=== PATIENT | female | born 1995 | race Caucasian/White ===

== ENCOUNTER 2024-04-14 13:56 | Emergency (ER) | payer SELFPAY ==
[2024-04-14 13:57] VITALS: BP 139/76; PULSE 67; RESP 16; TEMP 36.6; O2SAT 100; BMI 25.5
--- NOTE | 2024-04-14 15:24 | ED.RN ---
PTCALLED TO TAKE TO A AREA FOR THE DR. PT CHOSE TO LEAVE - LWBS
== END 2024-04-14 15:24 | disposition left against medical advice (07) ==
LOC: ED 15:29
DX: K59.00 Constipation, unspecified (principal)

== ENCOUNTER → 2024-05-16 | Outpatient (CLI) | payer MEDICAID, SELFPAY ==
[2024-05-20 06:08] LABS: Chlamydia By Nucleic Acid AMP Negative (Negative); Gonococcus By Nucleic Acid AMP Negative (Negative)
[2024-05-22 14:05] LABS: HPV Reflexed? NOT INDICATED
== END | disposition home or self-care (01) ==
PROVIDERS: Referring Provider Registered Nurse; Visit Provider Registered Nurse
DX: O99.320 Drug use complicating pregnancy, unspecified trimester (principal); F11.20 Opioid dependence, uncomplicated; O09.299 Supervision of pregnancy with other poor reproductive or obstetric history, unspecified trimester; Z3A.00 Weeks of gestation of pregnancy not specified
CPT/HCPCS: 87491; 87591; 88175; G0145

== ENCOUNTER 2024-05-20 14:11 | Day surgery (SDC) | payer MEDICAID, SELFPAY ==
[2024-05-20] VITALS (10 sets, daily range): BP systolic 106–114; BP diastolic 55–71; PULSE 54–62; RESP 16; TEMP 36.2–36.6; O2SAT 100; BMI 23.6
--- NOTE | 2024-05-20 07:30 | PCM.HP.BLA ---
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 Is patient in pain?: No Allergies No Known Allergies Allergy (Verified 05/16/24 14:45) Medications ?Medication ?Instructions ?Recorded ?Confirmed ?Type buprenorphine 12 mg-naloxone 3 mg 1 film buccal Q24H 04/24/24 05/16/24 History sublingual film vit no.164-ferrous tab PO 04/24/24 05/16/24 History gluconate 6 mg-folate 833.5 mcg DFE tablet ( PNV) Last Menstrual Period: 03/05/24 : No PFSH PFSH Family History Mother Heart disease HypertensionGrandmother Breast cancer, Onset Age: 60Grandmother Cancer Colon cancer, Lung cancer Social History adopted: No household members: significant other and other details: Erickson Brunson Lillian, [place] (shared custody, different Dads) housing: house number of children: 4 current occupational status: unemployed pets and animals: Yes pets and animals: cat(s) history of recent travel: No sexually active: Yes Smoking Status: Former smoker quit date: 01/04/24 Electronic Cigarette Use: with nicotine quit status: considering quitting alcohol intake: never substance use type: opiates and other details: stopped 02/2023 well-balanced diet: daily or most days caffeine: No during the past year weight has: increased > 10 lbs what type of physical activity do you participate in: walking frequency: 3-4 times per week ken/baptist: Evangelical seatbelt use: always do you feel safe at home: Yes additional social history: Giselle Worrell History 7 Elective abortions Hx Para 4 Spontaneous abortions 3 Hx # Term Pregnancies Ectopic pregnancies Hx # Pregnancies Multiple births # of living children 4 Past Pregnancies Del. Date Name GA/Weeks Outcome Route Bth Weight Infant Gen Labor Lgth Anesthesia Del Locatn Provider FOB 05/16/24 9 spontaneous HPI 10WK NOB *new patient* Details: TONY MCKEON is a 28 year old who presents for New OB visit. she was supposed to 10 weeks but pole is measuring 9 weeks with no FHT seen, no color doppler flow. nonviable IUP and confirmed missed ab. OB Visit NIKOLAI Calculator Estimated Delivery Date Method Current WG Estimated Due Date: 12/10/24 Expected Delivery Route/Plan patient counseled regarding risks/benefits of trial of labor versus repeat . ACOG/uptodate education given to patient. [] % likelihood of success per calculator TOLAC consent form signed: [] Specific Issue/Plans Covid status: [] Flu vaccine: [] Tdap vaccine: [] Rhogam: [] LARC form signed: [] Problem list reviewed and updated with the most current plan of care details and appropriate orders placed. Relevant counseling for the gestational age provided. Continue routine care and follow up unless otherwise noted in visit notes/problem list details Initial Weight: 154 lb Date <del>?</del> EGA Weight BP Urine Prot <del>?</del> Glucose FHR FuHt Pres Dilation <del>?</del> Effaced St Visit Note 05/16/24<del>?</del> 10w 2d 154 lb 4 oz(+4 oz) 120/78 <del>?</del> <del>?</del> LC- no FHR, measuring 9 weeks. confirmed with JV. Menstrual History Last Menstrual Period: 03/05/24 Reported LMP: definite On hormonal BC at conception: No Antepartum Record Genetic Screening: Congenital Heart Defect: Other, Neural Tube Defect: Other, Hemoglobinopathy Or Carrier: Other, Cystic Fibrosis: Other, Chromosome Abnormality: Other, Kyree-Sachs: Other, Hemophilia: Other, Intellectual Disability/Autism: Other, Recurrent Loss/Stillbirth: Other, Other Structural Defect: Other, Other Genetic Disease: Other and Maternal Metabolic Disorder: Other Infection History: Live with someone with TB or Exposed to TB: No, Patient or Partner has history of Genital Herpes: No, Rash or Viral illness since last mentrual period: No, Prior GBS-Infected child: No, History of STD: No, HIV Infection: No, History of Hepatitis: No, Recent travel outside of [place]: No, Concern for hepatitis exposure: No, Varicella immune: No and Covid Vaccinated: Yes (had elderer x2) Medical History Medical History: Negative: Diabetes, Hypertension, Heart disease, Auto-immune disorder, Kidney disease/UTI, Neurologic/epilepsy, Psychiatric, Depression/ depression, Hepatitis/liver disease, Varicosities/phlebitis, Thyroid dysfunction, Trauma/domestic violence, History of blood transfusions, D (Rh) Sensitized, Pulmonary (e.g.,TB,Asthma), Seasonal allergies, Drug/latex allergies/reactions, Breast, Office Machine Service Supervisor surgery, Operations/hospitalizations, Anesthetic complications, History of abnormal pap, Uterine anomaly/kae, Infertility, Anti-retroviral treatment, Relevant family history and Other ACOG First Trimester First Trimester: Discussed ROS Const Denies anorexia, Denies body aches, Denies chills, Denies excessive sweating, Denies fatigue, Denies headache(s) and Denies lethargy ENT Denies headache(s) GI Denies abdominal pain, Denies coffee ground emesis, Reports constipation, Denies cramping and Reports nausea Denies sexual dysfunction, Reports urinary frequency, Denies urinary incontinence, Denies urinary hesitancy, Denies urinary urgency, Denies vaginal discharge, Denies vaginal dryness, Denies vaginal odor and Denies vaginal pruritus Skin/Breast Details: breast discomfort Neuro No headache(s) Endo Denies cold intolerance, Denies deepening of the voice, Denies excessive sweating, Denies fatigue, Denies flushing, Denies heat intolerance, Denies polydipsia and Denies polyphagia Exam Const General: cooperative, healthy appearing, comfortable and no acute distress Neck Neck: normal visual inspection, full ROM and no lymphadenopathy Thyroid: thyroid normal Chest Chest palpation & inspection: normal inspection of the chest Breast inspection: normal inspection of the breasts and normal inspection of the axillae Resp Effort & Inspection: normal respiratory effort, able to speak in complete sentences and symmetric chest movement GI Inspection: normal to inspection Palpation: soft External Female Exam: normal external appearance and normal appearance of the urethra Urethra: normal appearance of the urethra Speculum Exam - Vagina: normal appearance of the vagina Speculum Exam - Cervix: normal appearance of the cervix Bimanual Exam- Vagina & Uterus: uterine size normal (consistent with dates of ) OB/External & Speculum: no bleeding Skin General: rashes and/or lesions noted Neuro General: patient alert, patient awake and patient oriented x3 Psych Appearance: grossly normal and well kempt Coding Level of Care Code Off vis,new,level 4 Diagnoses Opiate addiction F11.20 History of miscarriage Z87.59 Supervision of high-risk O09.90 10 weeks gestation of Z3A.10 Weeks of gestation: 10 weeks History of section Z98.891 History of pre-eclampsia in prior , currently O09.299 Missed with demise before 20 completed weeks of gestation O02.1 Assessment and Plan Assessment and Plan (1) Opiate addiction: Status: Acute Comment: prev stopped 02/2023, taking buprenorphine (2) History of miscarriage: Status: Acute (3) Supervision of high-risk : Status: Acute Comment: , Does not have custody of kids Erickson Brunson Lillian (same dad) Bulmaro (different dad)Alejandra Galaviz (first baby together) (4) : Status: Acute Qualifiers: Weeks of gestation: 10 weeks Qualified Code(s): Z3A.10 - 10 weeks gestation of Comment: NIPT w/ gender & carrier- would like both (5) History of section: Status: Acute Comment: 10/15/18, 03/11/16 (in [place]) (6) History of pre-eclampsia in prior , currently : Status: Acute Comment: started asa (7) Missed with demise before 20 completed weeks of gestation: Status: Acute Comment: plan d&c bleeding precautions provided forget me knot basket given Plan Details After discussing the patient's diagnosis and treatment plan options, patient wishes to proceed with surgical management. I have discussed with the patient the risks, benefits, and alternatives of the procedure which include but are not limited to risks of anesthesia, bleeding, infection, possible damage to bowel, bladder, or surrounding vasculature which could lead to additional surgery to evaluate any complications. Patient agrees to procedure and wishes to proceed. ACOG/uptodate references given for additional information regarding procedure. UPDATE- I have seen the patient and performed any clinically relevant updates to the history and physical exam. Lea Williamson MD Assessment & Plan Assessment/Plan (1) Missed with demise before 20 completed weeks of gestation: (2) Opiate addiction:
[2024-05-20] MEDS: Doxycycline 100 MG CAPSULE PO (15:04)
--- NOTE | 2024-05-20 15:16 | PRE.ANES_ITS ---
ASA Classification* ASA Classification ASA Classification: 3 (on suboxone, took it today. ) Assessment & Plan Anesthesia* Anesthesia Assessment Anesthesia Assessment: Discussed sedation and/or anesthesia options, risks, benefits, and alternatives with patient/parents/legal guardian/POA. Questions invited. The patient/parents/legal guardian/POA seems to understand and agrees to proceed with anesthesia plan. Reviewed the physical assessment, medical history, allergy history and patient home medications list prior to surgery/procedure/anesthetic and documented any changes. Performed airway and anesthesia risk assessments. Anesthesia Type Anesthesia Type: MAC (given suboxone use, consider NSAIDs (if surgeon agreeable) and ketamine. 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 When Was Last Pacemaker Check QUESTION #4 FULL TEXT: You/Your Family Experience fever (hyperthermia) with Anesthesia Last Oral Intake Last Oral intake: Last Oral Intake NPO since 20:00 05/20/24 14:47 Meds taken in AM with sips of Yes 05/20/24 14:47 water? Meds patient instructed to take am of surgery PONV PONV - reduction furnace operator helper: PONV - reduction furnace operator helper Female Yes 05/19/24 10:34 HX of Motion Sickness No 05/19/24 10:34 HX of N/V After Surgery No 05/19/24 10:34 Non-Smoker No 05/19/24 10:34 Duration of Surgery greater No 05/19/24 10:34 than 60 minutes Number of Risk Factors 1 05/19/24 10:34 PONV Score Low Risk 05/19/24 10:34 Height & Weight Height & Weight: Anesthesia: Height & Weight Height 5 ft 7 in 05/20/24 14:47 Weight: 68.6 kg 05/20/24 14:47 Body Mass Index (BMI) 23.6 05/20/24 14:47 Respiratory Assessment Respiratory Assessment - reduction furnace operator helper: Respiratory Tract Infection Hx - reduction furnace operator helper Hx Respiratory Tract Infection No 05/19/24 10:34 STOP Sleep Apnea STOP Sleep Apnea - reduction furnace operator helper: STOP Sleep Apnea - reduction furnace operator helper Hx Hypertension No 05/19/24 10:34 Hx Sleep Apnea No 05/19/24 10:34 CPAP BIPAP Do you snore loudly (louder No 05/19/24 10:34 than talking or can be heard Do you often feel tired/ No 05/19/24 10:34 fatigued/ sleepy during daytime? Has anyone observed you stop No 05/19/24 10:34 breathing during sleep? STOP Results Negative 05/19/24 10:34 QUESTION #5 FULL TEXT : Do you snore loudly (louder than talking or can be heard through closed doors)? Tobacco Use History Tobacco Use History - reduction furnace operator helper: Tobacco Use History - reduction furnace operator helper Tobacco Use Smoking Status Current every day smoker 05/19/24 10:34 Hx Tobacco Use Yes 05/19/24 10:34 Years Smoking Packs Smoked per Day Smoking Cessation Date was within the last 15 years Hx Smoking Cessation Date Hx Smoking Cessation Counseling Hematologic Medial History Hematologic Hx - reduction furnace operator helper: Hematologic Medical Hx - marketing manager Hx of Blood Transfusion No 05/19/24 10:34 Hx of Transfusion in last 3 No 05/19/24 10:34 Months Date of Last Transfusion (if within last 3 months) Ever experience any problems No 05/19/24 10:34 with transfusion(s)? Specify any problems Hx of Preganancy in last 3 N/A 05/19/24 10:34 Months Nurse Filling Out Transfusion NBUCHER 05/19/24 10:34 & Questions: Date: 05/19/24 05/19/24 10:34 Time: 10:35 05/19/24 10:34 Patient unable to answer at this time (ie. confused, unrespo /Reproduction History /Reproductive History - reduction furnace operator helper: /Reproductive Hx- reduction furnace operator helper Hx Now Gestational Age (in weeks): EDC: Hx Hx Para Hx Section SAB No 05/16/24 14:40 PFSH Medical History Substance abuse Wears partial dentures Electronic cigarette use Former smoker Home Medications ?Medication ?Instructions ?Recorded ?Last Taken ?Type buprenorphine 12 mg-naloxone 3 mg 1 film buccal BID 05/20/24 09:00 History sublingual film vit no.164-ferrous 1 tab PO DAILY 04/24/24 Un known History gluconate 6 mg-folate 833.5 mcg DFE tablet ( PNV) Allergy/AdvReac Type Severity Reaction Status Date / Time No Known Allergies Allergy Verified 05/20/24 14:46 Family History Mother Heart disease Hypertension Grandmother Breast cancer, Onset Age: 60 Grandmother Cancer Colon cancer, Lung cancer Surgical History History of D&C Social History adopted: No household members: significant other and other details: [place], [place], [place], [place] (shared custody, different Dads) housing: house number of children: 4 current occupational status: unemployed pets and animals: Yes pets and animals: cat(s) history of recent travel: No sexually active: Yes Smoking Status: Current every day smoker tobacco type: e-cigarettes Electronic Cigarette Use: with nicotine quit status: considering quitting alcohol intake: never substance use type: opiates and other details: stopped 02/2023 well-balanced diet: daily or most days caffeine: No during the past year weight has: increased > 10 lbs what type of physical activity do you participate in: walking frequency: 3-4 times per week ken/alevism: Buddhism seatbelt use: always do you feel safe at home: Yes additional social history: Giselle Worrell Review of Systems (Anesthesia) ROS Narrative System reviewed and no additional complaints, except as documented. Physical Exam Const alert, oriented x3 and average body habitus Resp normal respiratory effort, normal air movement and clear to auscultation bilaterally Cardio regular rate, regular rhythm, no murmurs and diaphoretic
--- NOTE | 2024-05-20 15:40 | POC_PTH ---
PATIENT: TONY CHEEK LOC: [facility] [place] U#:[id number] AGE/SX: 28/F ROOM: RE05/20/[address]: Dr. Lea Williamson MD : 1995 BED: DIS: 05/20/2024 SPEC #: [id number] RECD: 05/21/24 13:06 STATUS: VICENTE BRENNAN #: [id number] SARAH: 05/20/24 15:[address]: Lea Williamson DEPT: SURGICAL PATHOLOGY RECD BY: Ar Herrera ENTERED: 05/21/24 13:06 SP TYPE: PROD CONC OTHR DR: No Primary Care Phys Tissues: A - Product of conception, NOS Procedures: Surgery Specimen Level IV HEADER OPERATION: Dilation and curettage, suction PRE-OP DIAGNOSIS: Missed with demise before 20 completed weeks of gestation, opiate addiction TISSUE SUBMITTED: A- Products of conception MICROSCOPIC DIAGNOSIS A. Endometrium, D&C: * Immature chorionic villi, decidua, and hypersecretory endometrium, consistent with products of conception. MICROSCOPIC DESCRIPTION Slides are reviewed. GROSS DESCRIPTION A. Received in fixative is one container labeled with the patient's name and designated Products of conception. The specimen consists of one vacuum container filled with multiple fragments of hill tissue measuring 6 x 4 x 1.7cm. No definitive chorionic villi are identified grossly. Blade Grader Operator sections are submitted in three cassettes. 05/21/2024 CPT:86172
--- NOTE | 2024-05-20 19:07 | OP.PCM_ITS ---
Problems Associated Problem List Diagnoses (1) Missed with demise before 20 completed weeks of gestation: (2) Opiate addiction: Procedures Urinary/Genital 52xxx-59xxx: 03604 Trmt of incomplete Ab, any TM Operative Report (Standard) Operative Information Date of Procedure: 05/20/24 Pre-Operative Diagnosis: see problem list comments Post-Operative Diagnosis: same Surgery/Procedure Performed: suction dilation and curettage high pressure kettle operator: No Type of Anesthesia: IV Sedation and Local RN Documented Start/Stop Times: Operation Date: 05/20/24 15:40 Case Time Into Pre-Op 05/20/24 14:17 Anesthesia Start 05/20/24 19:10 Into Room 05/20/24 19:10 Procedure Start 05/20/24 19:24 Procedure End 05/20/24 19:33 Procedure Start Time: 19:24 Procedure Stop Time: 19:33 Select all DRAINS/GRAFTS/IMPLANTS that apply: None Estimated Blood Loss: 50 Specimen collected: Yes Description of specimen(s) removed: retained POC Description of surgery: Patient was taken to the operating room and placed under MAC local anesthesia. She was prepped and draped in the normal sterile fashion the dorsal lithotomy position. Bladder was drained of clear urine and anterior lip of the cervix was grasped and the uterus sounded to 10 cm. Cervix was progressively dilated to allow passage of a 10mm suction curette. Progressive passes were made removing the retained products of conception without complication. Sharp curettage confirmed complete removal of the retained products. All instruments were removed from the vagina and excellent hemostasis was noted and the patient was taken to recovery in stable condition. Surgical Findings: 10 week uterus Complications Complications: No
--- NOTE | 2024-05-20 19:09 | PCM.DC ---
Discharge Instructions Diet Discharge Diet: No restrictions DC O2, CPAP, BIPAP needs Home O2 Discharge instructions: No Dressing / Incision Discharge Activity: Return to Normal Activity, May Shower and May Take a Tub Bath (after 1 week) May resume sexual activity in: 1-2 weeks Weight Bearing Status: Weight bearing as tolerated Lifting Restrictions: none Dressing / Incision Call your doctor if you observe: Fever of 101 or Higher, Using more than 1 pad per hour, Shortness of breath and Uncontrolled pain Follow Up Care Please Follow Up With: Lea Williamson MD When: Call [phone] to schedule appointment. Test Results: Test results from this visit will be discussed in further detail at your follow-up appointment, if applicable. Discharge Plan Admission Attending Provider: Lea Williamson Primary Care Provider: Nelly Cuellar Primary Instructions Print Language: Persian Discharge Orders/Prescriptions Prescriptions: No Action Bea PNV 6 mg iron- 833.5 mcg DFE tablet 1 tab PO DAILY buprenorphine-naloxone 12-3 mg film 1 film buccal BID Patient Comments: takes for addiction to opiods Referrals / Follow Up: Care PhysicianNelly Primary [Primary Care Provider] - Disposition Disposition (needs filled in before D/C Order can be placed): Home, Self Care
[2024-05-20] MEDS: Lidocaine 1% (20 ml mdv) 20 ML Vial (19:25)
--- NOTE | 2024-05-20 20:56 | PCM.POST.ANE ---
Anesthesia: Postop Eval I Current Vital Signs Temperature: 97.3 F Pulse Rate: 56 Blood Pressure: 109/68 Respiratory Rate: 16 Pulse Ox: 100 Oxygen Delivery Method: Room Air Assessment Airway patent: Yes Spontaneous unlabored respirations: Yes Mental status: Calm and Asleep nausea: No Vomiting: No Anesthesia Complication: No Fluid Hydration Crystalloid volume administer (ml): 100 Total IV fluid infused: 100 Progress Note Anesthesia document: Postop Eval 1 completed: Yes
--- NOTE | 2024-05-20 20:57 | PCM.POSTANE2 ---
Anesthesia Postop Eval I Sum Postop Eval Completion status Anesthesia document: Postop Eval 1 completed: Yes Anesthesia Postop Eval I Summary Anesthesia Postop Eval I Summary: Anesthesia Postop Eval I: Assessment Summary Airway patent Yes 05/20/24 20:57 Spontaneous unlabored Yes 05/20/24 20:57 respirations Mental status Calm,Asleep 05/20/24 20:57 nausea No 05/20/24 20:57 Vomiting No 05/20/24 20:57 Anesthesia Postop Eval I: Fluid Summary Crystalloid volume administer 100 05/20/24 20:57 (ml) Colloids volume administered ( ml) Blood Product volume administered (ml) Total IV fluid infused 100 05/20/24 20:57 Anesthesia Postop Eval I: Summary Notes Anesthesia Complication No 05/20/24 20:57 Anesthesia Complication Comment: Post-operative progress note Anesthesia: Postop Eval II Evaluation Mental status: Awake Pain Level: 0 nausea: No Vomiting: No Complications Anesthesia Complication: No
== END 2024-05-20 20:25 | disposition home or self-care (01) ==
LOC: SDC 14:13 → AC 14:16
PROVIDERS: Referring Provider Obstetrics & Gynecology; Visit Provider Obstetrics & Gynecology
PROC: (CPT 59812; principal; 2024-05-20 15:25)
DX: O02.1 Missed abortion (principal); F11.20 Opioid dependence, uncomplicated; Z87.891 Personal history of nicotine dependence; Z98.891 History of uterine scar from previous surgery; Z87.59 Personal history of other complications of pregnancy, childbirth and the puerperium; N96 Recurrent pregnancy loss; O99.321 Drug use complicating pregnancy, first trimester; O99.891 Other specified diseases and conditions complicating pregnancy
CPT/HCPCS: 59812; 01965; 88305; A4216; J2405

== ENCOUNTER → 2024-06-02 | Outpatient (CLI) | payer MEDICAID, SELFPAY ==
[2024-06-04 17:07] LABS: Anti-Cardiolipin Ab, IgG, Qn < 9 GPL U/mL (0-14); Anti-Cardiolipin Ab, IgM, Qn 12 MPL U/mL (0-12); Beta-2-Glycoprotein I IgA <9 (0-25); Beta-2-Glycoprotein I IgG <9 (0-20); Beta-2-Glycoprotein I IgM <9 (0-32); Dilute Prothrombin Time (dPT) 35.7 sec (0.0-47.6); Dilute Russell Viper Venom 41.6 sec (0.0-47.0); Interpretation Comment: (.); PTT-LA 38.6 sec (0.0-43.5); Thrombin Time 20.1 sec (0.0-23.0); dPT Confirm Ratio 1.06 Ratio (0.00-1.34)
== END | disposition home or self-care (01) ==
PROVIDERS: Referring Provider Obstetrics & Gynecology; Visit Provider Obstetrics & Gynecology
DX: N96 Recurrent pregnancy loss (principal)
CPT/HCPCS: 36415; 86146; 86147